=== PATIENT | male | born 1950 | race African-American/Black ===

== ENCOUNTER 2021-07-21 07:48 | Day surgery (SDC) | payer OTHER ==
[2021-07-16 17:05] VITALS: BMI 28.3
[2021-07-21 09:19] VITALS: BP 129/80; PULSE 68; TEMP 97.8
== END 2021-07-21 09:56 | disposition home or self-care (01) ==
LOC: FASU-ENDO 07:48
PROVIDERS: ATTEND Internal Medicine Gastroenterology
PROC: 0DJD8ZZ Inspection of Lower Intestinal Tract, Via Natural or Artificial Opening Endoscopic (ICD-10-PCS; principal; 2021-07-21 08:40)
DX: Z12.11 Encounter for screening for malignant neoplasm of colon (principal)
CPT/HCPCS: 82962